=== PATIENT | male | born 1970 | race Caucasian/White ===

== ENCOUNTER 2017-04-25 08:04 | Emergency (ER) | payer OTHER ==
[~2017-04-25] VITALS: Ht 175.3 cm; Wt 118.9 kg
[~2017-04-25 08:04] MED LIST: ASPI81TA21 PO; LSN40 PO; PANT40TA2 PO
[2017-04-25 08:10] VITALS: TEMP 36.7; Ht 175.3 cm; Wt 118.9 kg
[2017-04-25] MEDS ORDERED: ONDANSETRON INJ 2 MG/ML 2 ML VIAL IV STA (08:25)
[2017-04-25] MEDS ORDERED: SODIUM CHLORIDE 0.9% 1000ML 1,000 ML IV STA (08:25)
[2017-04-25] MEDS ORDERED: HYDROmorphone INJ 1 MG/ML SYR IV STA (08:25)
--- NOTE | 2017-04-25 08:28 | EMERGENCY ROOM VISIT NOTE ---
History Report prepared by Geo: Diego Adorno Under the Supervision of: Dr. Justin Wall M.D. First contact with patient: 08:16 Chief Complaint: PAIN (GENERALIZED) Stated Complaint: GOUT History of Present Illness The patient is a 46 year old male with a history of gout who presents to the Emergency Room with complaints of persistent right ankle pain that started yesterday morning. He says that the pain came on suddenly when he woke up yesterday morning, and did not think it was gout initially, but the pain continued and now he thinks it is gout. The patient states that the right ankle is swollen. He says that he took Coltrazine last night, which decreased the pain somewhat. The patient denies any known injury to the ankle. He says that he was on Allopurinol years ago, but is not on it anymore. Source of History: patient Onset: Yesterday morning Position: ankle (right) Symptom Intensity: lots of pain Quality: other (sudden onset) Timing: other (persistent) Note: Associated symptoms: Right ankle swelling. Denies injury. Review of Systems See HPI for pertinent positives & negatives. A total of 10 systems reviewed and were otherwise negative. Past Medical & Surgical Medical Problems: (1) Abdominal pain (2) Diverticulitis (3) Hypertension Family History Hypertension Social History Smoking Status: Never Smoker Drug Use: none Marital Status: Housing Status: lives with family Occupation Status: employed Current/Historical Medications Scheduled Aspirin Enteric Coated (Ecotrin Or Generic), 81 MG PO DAILY Indomethacin (Indocin), 50 MG PO TID Lisinopril (Lisinopril), 40 MG PO DAILY Ranitidine Hcl (Zantac), 75 MG PO DAILY Allergies Coded Allergies: Peanut (Verified Allergy, Severe, ANAPHYLAXIS, 04/25/17) [place] (Verified Allergy, Unknown, ANAPHYLAXIS, 04/25/17) Filberts (Verified Allergy, Unknown, ANAPHYLAXIS, 04/25/17) NO KNOWN DRUG ALLERGIES (Verified Allergy, Unknown, , 04/25/17) Physical Exam Vital Signs Date Time Temp Pulse Resp B/P (MAP) Pulse Ox O2 Delivery O2 Flow Rate FiO2 04/25/17 08:56 80 04/25/17 08:10 36.7 87 20 148/96 97 Room Air Physical Exam GENERAL: Patient is a healthy-appearing well-nourished 46 year old male. HEAD: Normocephalic atraumatic EYES: Ocular movements intact pupils equal and react to light OROPHARYNX mucous membranes are moist no exudates present no erythema or edema present NECK: Supple no nuchal rigidity CHEST: Good equal expansion LUNGS: Clear and equal to auscultation CARDIAC: Normal S1 and S2 ABDOMEN: Soft nontender no guarding BACK: No CVA tenderness EXTREMITIES: Exquisitely tender when moving right ankle. NEURO: Patient is following commands and answering questions appropriately. Alert and oriented x3 Cranial Nerves 2-12 grossly intact Medical Decision & Procedures ER Provider Diagnostic Interpretation: X-ray results as stated below per interpretation by me and the radiologist: RIGHT ANKLE 3 VIEWS HISTORY: Pt c/o Rt ankle pain COMPARISON: None. FINDINGS: There is no fracture or dislocation. Mild soft tissue swelling. No radiopaque foreign bodies. Calcification at the distal attachment of the Achilles. This likely chronic. IMPRESSION: No fractures. Electronically signed by: Khanh Sandoval M.D. 04/25/2017 8:48 AM Dictated Date/Time: 04/25/2017 8:47 AM Laboratory Results 04/25/17 08:40 Red Blood Count 4.79, Mean Corpuscular Volume 92.7, Mean Corpuscular Hemoglobin 32.4, Mean Corpuscular Hemoglobin Concent 34.9, Mean Platelet Volume 10.0, Neutrophils (%) (Auto) 67.2, Lymphocytes (%) (Auto) 21.3, Monocytes (%) (Auto) 8.1, Eosinophils (%) (Auto) 2.9, Basophils (%) (Auto) 0.3, Neutrophils # (Auto) 7.02, Lymphocytes # (Auto) 2.22, Monocytes # (Auto) 0.85, Eosinophils # (Auto) 0.30, Basophils # (Auto) 0.03 04/25/17 08:40 Test 04/25/17 08:40 04/25/17 08:55 White Blood Count 10.44 K/uL (4.8-10.8) Red Blood Count 4.79 M/uL (4.7-6.1) Hemoglobin 15.5 g/dL (14.0-18.0) Hematocrit 44.4 % (42-52) Mean Corpuscular Volume 92.7 fL (80-100) Mean Corpuscular Hemoglobin 32.4 pg (25-34) Mean Corpuscular Hemoglobin Concent 34.9 g/dl (32-36) Platelet Count 199 K/uL (130-400) Mean Platelet Volume 10.0 fL (7.4-10.4) Neutrophils (%) (Auto) 67.2 % Lymphocytes (%) (Auto) 21.3 % Monocytes (%) (Auto) 8.1 % Eosinophils (%) (Auto) 2.9 % Basophils (%) (Auto) 0.3 % Neutrophils # (Auto) 7.02 K/uL (1.4-6.5) Lymphocytes # (Auto) 2.22 K/uL (1.2-3.4) Monocytes # (Auto) 0.85 K/uL (0.11-0.59) Eosinophils # (Auto) 0.30 K/uL (0-0.5) Basophils # (Auto) 0.03 K/uL (0-0.2) RDW Standard Deviation 42.2 fL (36.4-46.3) RDW Coefficient of Variation 12.6 % (11.5-14.5) Immature Granulocyte % (Auto) 0.2 % Immature Granulocyte # (Auto) 0.02 K/uL (0.00-0.02) Anion Gap 10.0 mmol/L (3-11) Est Creatinine Clear Calc Drug Dose 112.9 ml/min Estimated GFR () 99.8 Estimated GFR (Non- 86.1 BUN/Creatinine Ratio 15.0 (10-20) Uric Acid 6.3 mg/dl (2.6-7.2) Calcium Level 8.9 mg/dl (8.5-10.1) Total Bilirubin 0.5 mg/dl (0.2-1) Direct Bilirubin 0.1 mg/dl (0-0.2) Aspartate Amino Transf (AST/SGOT) 22 U/L (15-37) Alanine Aminotransferase (ALT/SGPT) 34 U/L (12-78) Alkaline Phosphatase 53 U/L (45-117) Total Protein 8.1 gm/dl (6.4-8.2) Albumin 3.8 gm/dl (3.4-5.0) Lipase 167 U/L (73-393) Urine Color YELLOW Urine Appearance CLEAR (CLEAR) Urine pH 5.0 (4.5-7.5) Urine Specific [place] 1.018 (1.000-1.030) Urine Protein NEG (NEG) Urine Glucose (UA) NEG (NEG) Urine Ketones NEG (NEG) Urine Occult Blood NEG (NEG) Urine Nitrite NEG (NEG) Urine Bilirubin NEG (NEG) Urine Urobilinogen NEG (NEG) Urine Leukocyte Esterase NEG (NEG) Medications Administered Medications (Trade) Dose Ordered Sig/[place] Route Start Time Stop Time Status Last Admin Dose Admin Sodium Chloride 1,000 ml @ 999 mls/hr Q1H1M STAT IV 04/25/17 08:25 04/25/17 09:25 DC 04/25/17 08:47 999 MLS/HR Hydromorphone HCl (Dilaudid Inj) 1 mg NOW STAT IV 04/25/17 08:25 04/25/17 08:27 DC 04/25/17 08:47 1 MG Ondansetron HCl (Zofran Inj) 4 mg NOW STAT IV 04/25/17 08:25 04/25/17 08:27 DC 04/25/17 08:47 4 MG Ketorolac Tromethamine (Toradol Inj) 30 mg NOW STAT IV 04/25/17 08:33 04/25/17 08:50 DC 04/25/17 08:46 30 MG ED Course 0819: Past medical records reviewed. The patient was evaluated in room B10. A complete history and physical examination was performed. 0825: Ordered Zofran Inj 4 mg IV, Dilaudid Inj 1 mg IV, NSS 1000 ml @ 999 mls/ hr IV. 0833: Ordered Toradol Inj 30 mg IV. 0930: Upon reexamination the patient is resting and feeling better. I discussed results and treatment plan with the patient. He verbalizes agreement and understanding. The patient is ready for discharge. Medical Decision Differential diagnosis: Etiologies such as fracture, dislocation, neurovascular compromise, compartment syndrome, soft tissue injury, as well as others were entertained. This is a 46-year-old male who presents emergency department complaining of right ankle pain. The patient has a history of gout and he feels this is a gout flare. He took his colchicine 3 doses last evening. An IV was established , the patient given normal saline bolus, Dilaudid. Repeat examination revealed much improvement the patient's symptoms. Discussing the case with the pharmacy they felt that the patient be placed on indomethacin. Patient and are in agreement with the treatment plan. Medication Reconcilliation Current Medication List: was personally reviewed by me Blood Pressure Screening Patient's blood pressure: Elevated blood pressure Blood pressure disposition: Elevated BP felt to be situational Impression Primary Impression: Gout Scribe Attestation The scribe's documentation has been prepared under my direction and personally reviewed by me in its entirety. I confirm that the note above accurately reflects all work, treatment, procedures, and medical decision making performed by me. Departure Information Dispostion Home / Self-Care Prescriptions Indomethacin (Indocin) 50 Mg Cap 50 MG PO TID, #20 CAP WITH FOOD UNTIL PAIN RESOLVES Prov: Justin Wall MD 04/25/17 Referrals No Doctor, Assigned (PCP) Patient Instructions ED Diet Gout, Gout Attack Tx, My [facility] Additional Instructions You have been examined and treated today on an emergency basis only. This is not a substitute for, or an effort to provide, complete comprehensive medical care. It is impossible to recognize and treat all injuries or illnesses in a single emergency department visit. It is therefore important that you follow up closely with [facility]. Call as soon as possible for an appointment. Thank you for your time and consideration. I look forward to speaking with you again soon. Please don't hesitate to call us if you have any questions. Problem Qualifiers Primary Impression: Gout Gout site: ankle Gout etiology: unspecified cause Chronicity: acute Laterality: right Qualified Codes: M10.9 - Gout, unspecified
[2017-04-25] MEDS ORDERED: KETOROLAC TROMETHAMINE 30 MG/ML VIAL IV STA (08:33)
[2017-04-25 08:48] LABS: BASO % 0.3 %; BASO ABS # 0.03 K/uL (0-0.2); COMPLETE YES; EOS % 2.9 %; HEMATOCRIT 44.4 % (42-52); IG% 0.2 %; LYMPH % 21.3 %; LYMPH ABS # 2.22 K/uL (1.2-3.4); MEAN CELL VOLUME 92.7 fL (80-100); MEAN CORPUSCULAR HEMOGLOBIN 32.4 pg (25-34); MEAN CORPUSCULAR HGB CONC 34.9 g/dl (32-36); MONO % 8.1 %; NEUT % 67.2 %; PLATELET COUNT 199 K/uL (130-400); RED BLOOD COUNT 4.79 M/uL (4.7-6.1); WHITE BLOOD COUNT 10.44 K/uL (4.8-10.8)
--- NOTE | 2017-04-25 08:49 | DIAGNOSTIC IMAGING REPORT ---
RIGHT ANKLE 3 VIEWS HISTORY: Pt c/o Rt ankle pain COMPARISON: None. FINDINGS: There is no fracture or dislocation. Mild soft tissue swelling. No radiopaque foreign bodies. Calcification at the distal attachment of the Achilles. This likely chronic. IMPRESSION: No fractures. Electronically signed by: Khanh Sandoval M.D. 04/25/2017 8:48 AM Dictated Date/Time: 04/25/2017 8:47 AM
[2017-04-25] MEDS ORDERED: RANITAB33 PO (09:03)
[2017-04-25 09:11] LABS: CALCIUM 8.9 mg/dl (8.5-10.1); CREATININE 1.03 mg/dl (0.60-1.40); POTASSIUM 3.9 mmol/L (3.5-5.1); URIC ACID 6.3 mg/dl (2.6-7.2)
[2017-04-25 09:20] LABS: URINE APPEARANCE CLEAR (CLEAR); URINE BILIRUBIN NEG (NEG); URINE COLOR YELLOW; URINE NITRITE NEG (NEG); URINE SPECIFIC GRAVITY 1.018 (1.000-1.030); UROBILINOGEN NEG (NEG)
[2017-04-25] MEDS ORDERED: INDO-24 PO (09:32)
[2017-04-25 09:38] LABS: MANUAL MICROSCOPIC REQUIRED? NO; REVIEW REQ? NO
[2017-04-25 09:56] VITALS: BP 150/93; PULSE 69; O2SAT 98
== END 2017-04-25 09:58 | disposition home or self-care (01) ==
LOC: C.EDB 08:06
DX: M10.9 Gout, unspecified (principal); I10 Essential (primary) hypertension; Z82.49 Family history of ischemic heart disease and other diseases of the circulatory system; Z79.82 Long term (current) use of aspirin; Z79.899 Other long term (current) drug therapy

== ENCOUNTER → 2017-05-14 | Outpatient (CLI) | payer OTHER ==
[~2017-05-14] MED LIST changes: +INDO-24 PO; -PANT40TA2 PO; +RANITAB33 PO
[2017-05-14 17:09] LABS: BLOOD UREA NITROGEN 17 mg/dl (7-18); BUN/CREATININE RATIO 15.1 (10-20); CALCIUM 9.3 mg/dl (8.5-10.1); CARBON DIOXIDE 24 mmol/L (21-32); CHLORIDE 101 mmol/L (98-107); CREATININE 1.12 mg/dl (0.60-1.40); GLUCOSE 108 mg/dl (70-99); POTASSIUM 3.8 mmol/L (3.5-5.1); SODIUM 133 mmol/L (136-145)
[2017-05-14 17:10] LABS: URIC ACID 5.4 mg/dl (2.6-7.2)
[2017-05-15 06:32] LABS: ESTIMATED AVERAGE GLUCOSE 126 mg/dl; HA1C FLAG Normal (Normal)
== END | disposition home or self-care (01) ==
LOC: C.LABBFT 11:49
PROVIDERS: ATTEND Family Medicine
DX: I10 Essential (primary) hypertension (principal); G47.33 Obstructive sleep apnea (adult) (pediatric); E66.9 Obesity, unspecified; M10.9 Gout, unspecified

== ENCOUNTER → 2017-06-03 | Outpatient (CLI) | payer OTHER ==
[~2017-06-03] VITALS: Ht 175.3 cm; Wt 118.8 kg
[2017-06-03 15:40] VITALS: BP 125/85; PULSE 83; Ht 175.3 cm; Wt 118.8 kg
== END | disposition home or self-care (01) ==
LOC: C.NEUR 15:10
PROVIDERS: ATTEND Physician Assistant
DX: G47.33 Obstructive sleep apnea (adult) (pediatric) (principal); I10 Essential (primary) hypertension; E66.9 Obesity, unspecified; Z68.39 Body mass index [BMI] 39.0-39.9, adult; E78.5 Hyperlipidemia, unspecified

== ENCOUNTER 2024-02-12 20:18 | Inpatient (IN) ==
[2024-02-12] MEDS: SODIUM CHLORIDE 0.9% 1,000 ML IV ONE ×2 (20:59→21:40)
[2024-02-12 21:12] LABS: iSTAT Creatinine 1.1 mg/dl (0.6-1.3); iSTAT Ionized Calcium 1.14 mmol/l (1.12-1.32); iSTAT Potassium 3.9 mmol/L (3.3-5.0)
[2024-02-12] MEDS: METOPROLOL TARTRATE 1 MG/ML VIAL IV STA ×3 (21:16→22:12)
--- NOTE | 2024-02-12 21:16 | Emergency Department Note ---
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 Last Admin: 02/12/24 22:12 Dose: 5 mg Documented By: [facility] Data Radiologist's Impression: Abdomen/Pelvis CT 02/12/24 22:09 Exam(s): CT ABDOMEN + PELVIS With Contrast IV Amt: 118 ML OPTIRAY 320 EXAM: CT Abdomen and Pelvis With Intravenous Contrast CLINICAL HISTORY: Reason for exam: abd pain, constip. TECHNIQUE: Axial computed tomography images of the abdomen and pelvis with intravenous contrast. CTDI is 28.05 mGy and DLP is 2471.19 mGy-cm. Automated exposure control was utilized for the study. A dose lowering technique was utilized adhering to the principles of ALARA. CONTRAST: Patient received 118 ML OPTIRAY 320 of IV contrast COMPARISON: 07/02/14 FINDINGS: Lung bases: See below. Pleural space: Small bibasilar pleural effusions with mild compressive atelectasis dependent lung bases. Pneumonia not definitively excluded. ABDOMEN: Liver: Fatty infiltration of liver. Gallbladder and bile ducts: Unremarkable. No calcified stones. No ductal dilation. Pancreas: Unremarkable. No mass. No ductal dilation. Spleen: Unremarkable. No splenomegaly. Adrenals: Unremarkable. No mass. Kidneys and ureters: Unremarkable. No solid mass. No hydronephrosis. Stomach and bowel: Nondistended, fluid-filled small and large bowel characteristic for watery diarrhea. Subtle inflammatory stranding surrounding the descending duodenum may represent infectious or inflammatory duodenitis. PELVIS: Appendix: No findings to suggest acute appendicitis. Bladder: Unremarkable. No mass. Reproductive: Unremarkable as visualized. ABDOMEN and PELVIS: Intraperitoneal space: Unremarkable. No free air. No significant fluid collection. Bones/joints: No acute fracture. No dislocation. Soft tissues: Unremarkable. Vasculature: Unremarkable. No abdominal aortic aneurysm. Lymph nodes: Unremarkable. No enlarged lymph nodes. IMPRESSION: 1. Nondistended, fluid-filled small and large bowel characteristic for watery diarrhea. 2. Subtle inflammatory stranding surrounding the descending duodenum may represent infectious or inflammatory duodenitis. 3. Small bibasilar pleural effusions with mild compressive atelectasis dependent lung bases. Pneumonia not definitively excluded. Electronically signed by: Calixto Lux MD 02/12/24 23:01 PM Chest CTA 02/12/24 22:09 Exam(s): CTA CHEST IV Amt: 118 ML OPTIRAY 320 EXAM: CT Angiography Chest With Intravenous Contrast CLINICAL HISTORY: Reason for exam: PE. TECHNIQUE: Axial computed tomographic angiography images of the chest with intravenous contrast. CTDI is 28.05 mGy and DLP is 2471.19 mGy-cm. Automated exposure control was utilized for the study. A dose lowering technique was utilized adhering to the principles of ALARA. MIP reconstructed images were created and reviewed. COMPARISON: 07/02/14 FINDINGS: Pulmonary arteries: Unremarkable. No pulmonary embolism is identified. Aorta: No acute findings. No thoracic aortic aneurysm. Lungs: Mild interstitial pulmonary edema and mild congestive bronchial wall thickening. Pleural space: Small, layering bilateral pleural effusions with mild compressive atelectasis or pneumonia in the dependent lung bases. Heart: Heart is mildly enlarged. No significant pericardial effusion. No evidence of RV dysfunction. Bones/joints: No acute fracture. No dislocation. Soft tissues: Unremarkable. Lymph nodes: Unremarkable. No enlarged lymph nodes. IMPRESSION: 1. No pulmonary embolism is identified. 2. Small, layering bilateral pleural effusions with mild compressive atelectasis or pneumonia in the dependent lung bases. 3. Mild interstitial pulmonary edema and mild congestive bronchial wall thickening. Electronically signed by: Calixto Lux MD 02/12/24 23:03 PM Discharge Plan Visit Data Chief Complaint: Shortness of Breath/Dyspnea Stated Complaint: SEVERE ABD PAIN, SOB, NAUSEA ED Provider: Bernardino Herrera Discharge Problem: New onset atrial flutter, Atrial flutter with rapid ventricular response, Bilateral pleural effusion, Pneumonia Discharge Instructions Interventions: ED Discharge Assessment Last Done: 02/13/24 01:21 Discharge Problem: Pneumonia Qualifiers: Pneumonia type: due to unspecified organism Laterality: bilateral Lung location: lower lobe of lung Qualified Code(s): J18.9 - Pneumonia, unspecified organism
[2024-02-12 21:34] LABS: Albumin Globulin Ratio 1.5 (0.9-2); Albumin Level 4.1 gm/dl (3.4-5.0); Bilirubin,Total 0.7 mg/dl (0.2-1.0); Calcium 8.9 mg/dl (8.6-10.3); Creatinine Clr Calc Pharmacy 98.9 ml/min; Est GFR (African American) 98.5 ml/min; Est GFR (Non-African American) 84.9 ml/min; Globulin 2.8 gm/dl (2.5-4.0); Magnesium 2.4 mg/dl (1.7-2.4); Phosphorus 3.5 mg/dl (2.5-4.9); Potassium 3.9 mmol/L (3.5-5.1); Total Protein 6.9 gm/dl (6.0-8.3)
[2024-02-12 21:38] LABS: Basophils # (auto) 0.05 K/uL (0.00-0.20); Basophils % (auto) 0.5 %; Eosinophils # (auto) 0.09 K/uL (0.00-0.50); Eosinophils % (auto) 0.9 %; Hematocrit (blood only) 44.2 % (42.0-52.0); Hemoglobin 14.8 g/dl (14.0-18.0); Immature Granulocytes # (auto) 0.04 K/uL (0.01-0.20); Immature Granulocytes % (auto) 0.4 %; Lymphocytes # (auto) 2.14 K/uL (1.20-3.40); Lymphocytes % (auto) 22.2 %; Mean Corpuscular Hemoglobin 31.5 pg (25.0-34.0); Mean Corpuscular Hgb Conc 33.5 g/dL (32.0-36.0); Mean Platelet Volume 11.2 fL (9.4-12.4); Monocytes # (auto) 0.82 K/uL (0.11-0.59); Monocytes % (auto) 8.5 %; Neutrophils % (auto) 67.5 %; Platelet Count 213 K/uL (130-400); RDW Coefficient of Variation 12.3 % (11.5-14.5); RDW Standard Deviation 42.5 fL (36.4-46.3); White Blood Count 9.64 K/ul (4.8-10.8)
[2024-02-12 21:45] LABS: INR 1.2 (0.9-1.1); Prothrombin Time 12.7 Seconds (9.0-12.0)
[2024-02-12 21:49] LABS: Thyroid Stimulating Hormone 4.027 uIu/ml (0.300-4.500)
[2024-02-12 22:03] LABS: D Dimer 1290 ug/L FEU (0-500)
[2024-02-12 22:24] LABS: Adenovirus PCR Not Detected (NotDetected); Bordetella parapertussis PCR Not Detected (NotDetected); Bordetella pertussis PCR Not Detected (NotDetected); Chlamydia pneumoniae PCR Not Detected (NotDetected); Coronavirus 229E PCR Not Detected (NotDetected); Coronavirus CoV-2 (COVID19)PCR Not Detected (NotDetected); Coronavirus HKU1 PCR Not Detected (NotDetected); Coronavirus NL63 PCR Not Detected (NotDetected); Coronavirus OC43PCR Not Detected (NotDetected); Human Metapneumovirus PCR Not Detected (NotDetected); Influenza A PCR Not Detected (NotDetected); Influenza B PCR Not Detected (NotDetected); Mycoplasma pneumoniae PCR Not Detected (NotDetected); Parainfluenza Virus 1 PCR Not Detected (NotDetected); Parainfluenza Virus 2 PCR Not Detected (NotDetected); Parainfluenza Virus 3 PCR Not Detected (NotDetected); Parainfluenza Virus 4 PCR Not Detected (NotDetected); Respiratory Syncytial VirusPCR Not Detected (NotDetected); Rhinovirus/Enterovirus PCR Not Detected (NotDetected)
[2024-02-12] MEDS: OPTIRAY 320 125ml IV ONE (22:27)
[2024-02-12 23:00] LABS: Appearance Urine Clear (Clear); Bacteria Urine Automated None Seen (None Seen); Bilirubin Urine Negative (Negative); Blood Urine Negative (Negative); Cast Urine Automated 0-2 /lpf (0-2); Color Urine Yellow; Epithelial Cell Urine Auto 0-2 /hpf (0-2); Glucose Urine UA Negative (Negative); Ketones Urine Negative (Negative); Leukocyte Esterase Urine Negative (Negative); Nitrite Urine Negative (Negative); Protein Urine Trace (Negative); RBC Urine Automated 0-2 /hpf (0-2); Specific Gravity Urine 1.026 (1.000-1.030); Urobilinogen Urine Negative (Negative); WBC Urine Automated 0-5 /hpf (0-5); pH Urine 5.5 (4.5-7.5)
--- NOTE | 2024-02-12 23:02 | CT Scan Report ---
Exam(s): CT ABDOMEN + PELVIS With Contrast IV Amt: 118 ML OPTIRAY 320 EXAM: CT Abdomen and Pelvis With Intravenous Contrast CLINICAL HISTORY: Reason for exam: abd pain, constip. TECHNIQUE: Axial computed tomography images of the abdomen and pelvis with intravenous contrast. CTDI is 28.05 mGy and DLP is 2471.19 mGy-cm. Automated exposure control was utilized for the study. A dose lowering technique was utilized adhering to the principles of ALARA. CONTRAST: Patient received 118 ML OPTIRAY 320 of IV contrast COMPARISON: 07/02/14 FINDINGS: Lung bases: See below. Pleural space: Small bibasilar pleural effusions with mild compressive atelectasis dependent lung bases. Pneumonia not definitively excluded. ABDOMEN: Liver: Fatty infiltration of liver. Gallbladder and bile ducts: Unremarkable. No calcified stones. No ductal dilation. Pancreas: Unremarkable. No mass. No ductal dilation. Spleen: Unremarkable. No splenomegaly. Adrenals: Unremarkable. No mass. Kidneys and ureters: Unremarkable. No solid mass. No hydronephrosis. Stomach and bowel: Nondistended, fluid-filled small and large bowel characteristic for watery diarrhea. Subtle inflammatory stranding surrounding the descending duodenum may represent infectious or inflammatory duodenitis. PELVIS: Appendix: No findings to suggest acute appendicitis. Bladder: Unremarkable. No mass. Reproductive: Unremarkable as visualized. ABDOMEN and PELVIS: Intraperitoneal space: Unremarkable. No free air. No significant fluid collection. Bones/joints: No acute fracture. No dislocation. Soft tissues: Unremarkable. Vasculature: Unremarkable. No abdominal aortic aneurysm. Lymph nodes: Unremarkable. No enlarged lymph nodes. IMPRESSION: 1. Nondistended, fluid-filled small and large bowel characteristic for watery diarrhea. 2. Subtle inflammatory stranding surrounding the descending duodenum may represent infectious or inflammatory duodenitis. 3. Small bibasilar pleural effusions with mild compressive atelectasis dependent lung bases. Pneumonia not definitively excluded. Electronically signed by: Calixto Lux MD 02/12/24 23:01 PM
--- NOTE | 2024-02-12 23:04 | CT Scan Report ---
Exam(s): CTA CHEST IV Amt: 118 ML OPTIRAY 320 EXAM: CT Angiography Chest With Intravenous Contrast CLINICAL HISTORY: Reason for exam: PE. TECHNIQUE: Axial computed tomographic angiography images of the chest with intravenous contrast. CTDI is 28.05 mGy and DLP is 2471.19 mGy-cm. Automated exposure control was utilized for the study. A dose lowering technique was utilized adhering to the principles of ALARA. MIP reconstructed images were created and reviewed. COMPARISON: 07/02/14 FINDINGS: Pulmonary arteries: Unremarkable. No pulmonary embolism is identified. Aorta: No acute findings. No thoracic aortic aneurysm. Lungs: Mild interstitial pulmonary edema and mild congestive bronchial wall thickening. Pleural space: Small, layering bilateral pleural effusions with mild compressive atelectasis or pneumonia in the dependent lung bases. Heart: Heart is mildly enlarged. No significant pericardial effusion. No evidence of RV dysfunction. Bones/joints: No acute fracture. No dislocation. Soft tissues: Unremarkable. Lymph nodes: Unremarkable. No enlarged lymph nodes. IMPRESSION: 1. No pulmonary embolism is identified. 2. Small, layering bilateral pleural effusions with mild compressive atelectasis or pneumonia in the dependent lung bases. 3. Mild interstitial pulmonary edema and mild congestive bronchial wall thickening. Electronically signed by: Calixto Lux MD 02/12/24 23:03 PM
[2024-02-12] MEDS: cefTRIAXone SODIUM 2,000 MG/50 ML BAG IV STA (23:47)
[2024-02-13] MEDS: DOXYCYCLINE HYCLATE 100 MG in DEXTROSE 5% MINI-B 100 ML IV STA (00:09)
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
[2024-02-13] MEDS: dilTIAZem HCl 5 MG/ML 5 ML VIAL IV STA ×2 (00:35→01:31)
[2024-02-13] MEDS: HEPARIN SODIUM/DEXTROSE 25,000 UNITS/500 ML BAG IV SCH (00:55)
[2024-02-13] MEDS ORDERED: NON-FORMULARY MEDICATION (Aspirin 81 mg tablet) PO SCH (01:21)
[2024-02-13] MEDS ORDERED: ACETAMINOPHEN 325 MG TAB PO PRN (01:21)
[2024-02-13] MEDS: Heparin IV Adult Wt-Based Standard *NO* INITIAL Bolus Protocol IV STA (01:32)
[2024-02-13] MEDS: dilTIAZem HCL 30 MG TAB PO ONE ×3 (01:35→11:35)
[2024-02-13] MEDS: ONDANSETRON INJ 2 MG/ML 2 ML VIAL IV PRN (02:39)
[2024-02-13] MEDS: METOPROLOL TARTRATE 1 MG/ML VIAL IV STA ×2 (07:52→09:29)
[2024-02-13 08:19] LABS: Basophils # (auto) 0.06 K/uL (0.00-0.20); Basophils % (auto) 0.6 %; Eosinophils # (auto) 0.02 K/uL (0.00-0.50); Eosinophils % (auto) 0.2 %; Hematocrit (blood only) 42.6 % (42.0-52.0); Hemoglobin 14.1 g/dl (14.0-18.0); Immature Granulocytes # (auto) 0.04 K/uL (0.01-0.20); Immature Granulocytes % (auto) 0.4 %; Lymphocytes % (auto) 13.7 %; Mean Corpuscular Hemoglobin 31.9 pg (25.0-34.0); Mean Corpuscular Hgb Conc 33.1 g/dL (32.0-36.0); Mean Corpuscular Volume 96.4 fL (80.0-100.0); Mean Platelet Volume 10.7 fL (9.4-12.4); Monocytes # (auto) 0.75 K/uL (0.11-0.59); Monocytes % (auto) 7.9 %; Neutrophils % (auto) 77.2 %; Platelet Count 202 K/uL (130-400); RDW Coefficient of Variation 12.5 % (11.5-14.5); RDW Standard Deviation 43.9 fL (36.4-46.3); Red Blood Count 4.42 M/uL (4.70-6.10); White Blood Count 9.47 K/ul (4.8-10.8)
--- NOTE | 2024-02-13 08:21 | XRay Report ---
XR chest 1V portable CLINICAL HISTORY: tachycardia TECHNIQUE: Single frontal radiograph of the chest was obtained. Comparison: Comparison is made to chest radiograph 01/23/2012 FINDINGS: No lines and tubes are seen. Cardiomegaly is noted. The lungs are clear. No evidence of pleural effus ion or pneumothorax. IMPRESSION: No acute chest disease. Cardiomegaly is noted. ACT 112: Negative or not required by law. Electronically signed by: Fermín Dunn M.D. 02/13/2024 8:19 AM
[2024-02-13 08:37] LABS: Albumin Globulin Ratio 1.5 (0.9-2); Albumin Level 3.8 gm/dl (3.4-5.0); BUN Creatinine Ratio 17.5 (10-20); Bilirubin,Total 0.7 mg/dl (0.2-1.0); Calcium 8.3 mg/dl (8.6-10.3); Est GFR (African American) 102.2 ml/min; Est GFR (Non-African American) 88.1 ml/min; Globulin 2.6 gm/dl (2.5-4.0); Potassium 4.8 mmol/L (3.5-5.1); Total Protein 6.4 gm/dl (6.0-8.3)
[2024-02-13 08:38] LABS: ANTI-Xa, UFH(UnfractionatedHep 0.34 IU/ml (0.3-0.7)
[2024-02-13] MEDS: allopurinoL 100 MG TAB PO SCH (08:45)
[2024-02-13] MEDS: PANTOprazole 40 MG TAB PO SCH (08:45)
[2024-02-13] MEDS: ASPIRIN 81 MG ECTAB PO SCH (08:45)
[2024-02-13] MEDS: CHOLECALCIFEROL 125 MCG (5,000 UNITS) TAB PO SCH (08:45)
[2024-02-13 09:02] LABS: INR 1.2 (0.9-1.1); Prothrombin Time 12.8 Seconds (9.0-12.0)
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
--- NOTE | 2024-02-13 11:12 | XCELERA ---
[id number] \\[id number]\[id number]
[2024-02-13] MEDS: dilTIAZem HCL 240 MG CAPCR PO SCH (11:35)
[2024-02-13] MEDS ORDERED: dilTIAZem HCL 30 MG TAB PO SCH (14:00)
[2024-02-13 15:59] LABS: ANTI-Xa, UFH(UnfractionatedHep 0.25 IU/ml (0.3-0.7)
[2024-02-13] MEDS: METOPROLOL TARTRATE 50 MG TAB PO SCH (21:40)
[2024-02-13 23:37] LABS: ANTI-Xa, UFH(UnfractionatedHep 0.35 IU/ml (0.3-0.7)
[2024-02-14 06:01] LABS: Basophils # (auto) 0.06 K/uL (0.00-0.20); Basophils % (auto) 0.6 %; Eosinophils # (auto) 0.09 K/uL (0.00-0.50); Eosinophils % (auto) 0.9 %; Hematocrit (blood only) 40.3 % (42.0-52.0); Hemoglobin 13.5 g/dl (14.0-18.0); Immature Granulocytes # (auto) 0.05 K/uL (0.01-0.20); Immature Granulocytes % (auto) 0.5 %; Lymphocytes # (auto) 1.75 K/uL (1.20-3.40); Lymphocytes % (auto) 17.8 %; Mean Corpuscular Hemoglobin 32.1 pg (25.0-34.0); Mean Corpuscular Hgb Conc 33.5 g/dL (32.0-36.0); Mean Corpuscular Volume 95.7 fL (80.0-100.0); Mean Platelet Volume 10.9 fL (9.4-12.4); Monocytes # (auto) 0.85 K/uL (0.11-0.59); Monocytes % (auto) 8.6 %; Neutrophils # (auto) 7.04 K/uL (1.40-6.50); Neutrophils % (auto) 71.6 %; Platelet Count 201 K/uL (130-400); RDW Coefficient of Variation 12.8 % (11.5-14.5); RDW Standard Deviation 43.7 fL (36.4-46.3); Red Blood Count 4.21 M/uL (4.70-6.10); White Blood Count 9.84 K/ul (4.8-10.8)
[2024-02-14 06:09] LABS: Albumin Globulin Ratio 1.5 (0.9-2); Albumin Level 3.7 gm/dl (3.4-5.0); BUN Creatinine Ratio 15.3 (10-20); Bilirubin,Total 0.7 mg/dl (0.2-1.0); Calcium 8.4 mg/dl (8.6-10.3); Creatinine Clr Calc Pharmacy 89.1 ml/min; Est GFR (African American) 86.8 ml/min; Est GFR (Non-African American) 74.9 ml/min; Globulin 2.5 gm/dl (2.5-4.0); Magnesium 2.1 mg/dl (1.7-2.4); Potassium 4.1 mmol/L (3.5-5.1); Total Protein 6.2 gm/dl (6.0-8.3)
[2024-02-14 06:23] LABS: ANTI-Xa, UFH(UnfractionatedHep 0.46 IU/ml (0.3-0.7); INR 1.2 (0.9-1.1); Partial Thromboplastin Time 53 Seconds (21-31); Prothrombin Time 12.7 Seconds (9.0-12.0)
[2024-02-14] MEDS: FUROSEMIDE 40 MG/4 ML VIAL IV SCH (09:07)
--- NOTE | 2024-02-14 13:17 | Cardiology Progress Note ---
Date of Service February 14, 2024 Assessment & Plan (1) Atrial fibrillation with RVR: (2) Bilateral pleural effusion: (3) Cardiomyopathy: Plan 1. Atrial fibrillation: He has developed atrial fibrillation with a rapid heart rate, it has not responded well to standard therapy and he remains fast. We will need to achieve better rate control, if we cannot we may need to consider YESIKA guided cardioversion since we do not know the onset of the arrhythmia. I am going to go up on his beta-blockade today and he is on reasonable doses of diltiazem although we could go up on that as well. We need to continue anticoagulation although his [id number] score is low so he may not need that for the long run even if he has recurrent atrial fibrillation. His risk factors for atrial fibrillation include hypertension and sleep apnea. Over the long run we need to try to control both of these. 2. Pleural effusions: This suggests some element of congestive heart failure, an echo is pending to determine his left ventricular function. This would be consistent with either HFpEF or HFrEF, he does have a low ejection fraction which would favor HFrEF. In either case rate control and mild diuresis would be in order. 3. Cardiomyopathy: He has a significant cardiomyopathy which may partially explain his presenting symptoms of shortness of breath. We cannot be certain whether his cardiomyopathy is secondary to longstanding atrial fibrillation (which may have only recently become symptomatic due to the development of the cardiomyopathy) or whether his cardiomyopathy led to the atrial fibrillation. Usually we cannot make that distinction except in retrospect if we see that his left ventricular function improves with rate control. I would recommend rate control and we need to order studies for causes for cardiomyopathy. We will probably need some type of ischemic evaluation although that seems unlikely, I would prefer not to perform catheterization now and I do not think we should do a stress test at this point. We may want to do that in the future. Admission and Anticipated Discharge Date Admission Date: February 13, 2024 Subjective He continues to feel well today, he is not really aware of his cardiac rhythm and has no chest discomfort. He has not been short of breath but has not been very active. Physical Exam Physical Exam: Constitutional: Alert, cooperative and in no distress. HEENT: Unremarkable Neck: No jugular venous distention, carotid pulses are irregular but otherwise normal and equal bilaterally without bruits. Pulmonary: Clear to auscultation bilaterally. Cardiac: Irregular rapid rhythm with no murmur, gallop or rub. Abdomen: Soft, nontender with normal bowel sounds. Extremities: No edema. Neurologic: No focal findings. Skin: No rash, ecchymoses or petechiae. Results & Data Vital Signs (Past 12 Hours) Vital Signs Temp Pulse Pulse Resp BP Pulse Ox O2 Del Method 02/14/24 11:08 36.5 C 112 H 18 116/83 93 Room Air 02/14/24 09:59 Room Air 02/14/24 07:30 116 H 02/14/24 07:24 36.4 C L 112 H 18 115/82 94 Room Air 02/14/24 02:38 36.6 C 119 H 18 122/74 93 Room Air Laboratory Results Cardiac Enzymes 02/14/24 Range/Units 05:29 AST 26 (13-39) U/L Coagulation 02/14/24 Range/Units 05:29 PT 12.7 H (9.0-12.0) Seconds APTT 53 H (21-31) Seconds CBC 02/14/24 Range/Units 05:29 WBC 9.84 (4.8-10.8) K/ul RBC 4.21 L (4.70-6.10) M/uL Hgb 13.5 L (14.0-18.0) g/dl Hct 40.3 L (42.0-52.0) % Plt Count 201 (130-400) K/uL Neut # (Auto) 7.04 H (1.40-6.50) K/uL Lymph # (Auto) 1.75 (1.20-3.40) K/uL [place] # (Auto) 0.85 H (0.11-0.59) K/uL Eos # (Auto) 0.09 (0.00-0.50) K/uL Baso # (Auto) 0.06 (0.00-0.20) K/uL Comprehensive Metabolic Panel 02/14/24 Range/Units 05:29 Sodium 135 L (136-145) mmol/L Potassium 4.1 (3.5-5.1) mmol/L Chloride 103 (98-107) mmol/L Carbon Dioxide 27 (21-32) mmol/L BUN 17 (6-23) mg/dl Creatinine 1.11 (0.6-1.4) mg/dl Glucose 147 H (70-99(Fasting)) mg/dl Calcium 8.4 L (8.6-10.3) mg/dl AST 26 (13-39) U/L ALT 46 (7-52) U/L Alkaline Phosphatase 49 (34-104) U/L Total Protein 6.2 (6.0-8.3) gm/dl Albumin 3.7 (3.4-5.0) gm/dl Intake and Output 02/13/24 02/14/24 02/14/24 22:59 06:59 14:59 Intake Total 923.334 / 1420.934 497.6 / 1420.934 69.066 / 69.066 Balance 923.334 / 1420.934 497.6 / 1420.934 69.066 / 69.066 Intake: IV 673.334 / 930.934 257.6 / 930.934 69.066 / 69.066 Heparin Sodium/Dextrose 25,000 673.334 / 930.934 257.6 / 930.934 69.066 / 69.066 units In 500 ml @ 1,600 UNITS/ HR 32 mls/hr IV .[id number] KEVEN Rx #:[id number] Oral 250 / 490 240 / 490 Other: Other Intake Source NPO # Unmeasured Voids 1 Weight 105.1 kg Weight Measurement Method Standing Scale Diagnostic Findings Telemetry: Atrial fibrillation, rate averaging around 120 bpm. Little change from admission. PG Care Time/CCT Total # of Minutes Spent Total Time Spent with Patient: Total time spent is greater than 50% in coordination of care (as documented) at patient's floor/unit and/or counseling patient: Coding Level of Care Code 54839 SUB INP/OBS CARE 3/50MIN Diagnoses Atrial fibrillation with RVR I48.91 Bilateral pleural effusion J90 Cardiomyopathy I42.9
--- NOTE | 2024-02-14 14:04 | Hospitalist Progress Note ---
Date of Service February 14, 2024 Assessment & Plan (1) Atrial fibrillation with RVR: Plan: New onset Afib with RVR Initially on Diltiazem drip, now transitioned to oral 240mg daily Continue heparin by weight and Metoprolol Cardiology on board, may benefit from cardioversion (2) Acute HFrEF (heart failure with reduced ejection fraction): Plan: ECHO showed EF 30-35% Likely cardiomyopathy from Afib Will continue IV lasix 40mg daily Monitor I/O, daily weights (3) Cardiomyopathy: Plan: Secondary to Afib (4) Bilateral pleural effusion: Plan: secondary to CHF Continue diuresis Plan continue hospitalization Admission and Anticipated Discharge Date Admission Date: February 13, 2024 Subjective patient seen and examined, still feeling some palpitations Review of Systems Review of Systems: All systems reviewed are negative, apart from the ones contained in the history. Physical Exam Physical Exam: The patient is awake, alert and oriented 3, well developed and well nourished, normocephalic and atraumatic, lying in bed and in no acute distress. HEENT--PERRL, EOMI, mucous membranes and oropharynx mildly dry Neck--supple. No JVD. No bruits. Thyroid normal, trachea midline, no adenopathy. Heart--normal S1 and S2. No murmurs, rubs or gallops. Lungs--clear bilaterally, no respiratory distress, no accessory muscle use. Abdomen--normal bowel sounds and soft. Extremities--no cyanosis or clubbing. No edema. Dermatologic--normal skin turgor, normal color, no abnormal lymph nodes, no rash. Neurologic--cranial nerves II through XII grossly intact. Rheumatologic--normal range of motion. Psychiatric--normal affect. Results & Data Results & Data Vital Signs (Past 12 Hours) Vital Signs Temp Pulse Pulse Resp BP Pulse Ox O2 Del Method 02/14/24 11:08 97.7 F 112 H 18 116/83 93 Room Air 02/14/24 09:59 Room Air 02/14/24 07:30 116 H 02/14/24 07:24 97.5 F L 112 H 18 115/82 94 Room Air 02/14/24 02:38 97.9 F 119 H 18 122/74 93 Room Air PG Care Time/CCT Total # of Minutes Spent Total Time Spent with Patient: Total time spent is greater than 50% in coordination of care (as documented) at patient's floor/unit and/or counseling patient: Coding Level of Care Code 11561 SUB INP/OBS CARE 2MIN Diagnoses Atrial fibrillation with RVR I48.91 Acute HFrEF (heart failure with reduced ejection fraction) I50.21 Cardiomyopathy I42.9 Bilateral pleural effusion J90 Time Spent (min) 35
[2024-02-14] MEDS: METOPROLOL TARTRATE 50 MG TAB PO STA (14:10)
[2024-02-14] MEDS: METOPROLOL TARTRATE 100 MG TAB PO SCH (20:19)
--- NOTE | 2024-02-15 05:52 | Electrocardiogram Report ---
Test Reason : Blood Pressure : */* mmHG Vent. Rate : 161 BPM Atrial Rate : * BPM P-R Int : * ms QRS Dur : 72 ms QT Int : 286 ms P-R-T Axes : * -4 -18 degrees QTcB Int : 468 ms Atrial fibrillation with rapid ventricular response Nonspecific T wave abnormality Abnormal ECG When compared with ECG of 12-Feb-2024 20:47, (unconfirmed) Atrial fibrillation is now present Confirmed by Tristan Navarro ([id number]) on 02/15/2024 5:51:32 AM Referred By: REFERRED SELF Confirmed By: Tristan Navarro
--- NOTE | 2024-02-15 05:52 | Electrocardiogram Report ---
Test Reason : Blood Pressure : */* mmHG Vent. Rate : 140 BPM Atrial Rate : * BPM P-R Int : * ms QRS Dur : 72 ms QT Int : 322 ms P-R-T Axes : * 0 -2 degrees QTcB Int : 491 ms Atrial fibrillation with rapid ventricular response Nonspecific T wave abnormality Abnormal ECG When compared with ECG of 12-Feb-2024 20:47, (unconfirmed) No significant change was found Confirmed by Tristan Navarro ([id number]) on 02/15/2024 5:52:04 AM Referred By: REFERRED SELF Confirmed By: Tristan Navarro
--- NOTE | 2024-02-15 05:54 | Electrocardiogram Report ---
Test Reason : Blood Pressure : */* mmHG Vent. Rate : 138 BPM Atrial Rate : * BPM P-R Int : * ms QRS Dur : 76 ms QT Int : 260 ms P-R-T Axes : * -13 -16 degrees QTcB Int : 393 ms Atrial fibrillation with rapid ventricular response Cannot rule out Inferior infarct , age undetermined Abnormal ECG When compared with ECG of 12-Feb-2024 21:31, (unconfirmed) No significant change was found Confirmed by Tristan Navarro ([id number]) on 02/15/2024 5:54:33 AM Referred By: REFERRED SELF Confirmed By: Tristan Navarro
[2024-02-15 06:23] LABS: Basophils # (auto) 0.05 K/uL (0.00-0.20); Basophils % (auto) 0.6 %; Eosinophils # (auto) 0.15 K/uL (0.00-0.50); Eosinophils % (auto) 1.8 %; Hematocrit (blood only) 44.3 % (42.0-52.0); Hemoglobin 14.4 g/dl (14.0-18.0); Immature Granulocytes # (auto) 0.04 K/uL (0.01-0.20); Immature Granulocytes % (auto) 0.5 %; Lymphocytes % (auto) 21.6 %; Mean Corpuscular Hemoglobin 31.2 pg (25.0-34.0); Mean Corpuscular Hgb Conc 32.5 g/dL (32.0-36.0); Mean Corpuscular Volume 95.9 fL (80.0-100.0); Mean Platelet Volume 11.1 fL (9.4-12.4); Monocytes # (auto) 0.85 K/uL (0.11-0.59); Monocytes % (auto) 10.2 %; Neutrophils # (auto) 5.46 K/uL (1.40-6.50); Neutrophils % (auto) 65.3 %; Platelet Count 217 K/uL (130-400); RDW Coefficient of Variation 12.9 % (11.5-14.5); RDW Standard Deviation 44.5 fL (36.4-46.3); Red Blood Count 4.62 M/uL (4.70-6.10); White Blood Count 8.35 K/ul (4.8-10.8)
[2024-02-15 06:35] LABS: Albumin Globulin Ratio 1.5 (0.9-2); Albumin Level 4.1 gm/dl (3.4-5.0); BUN Creatinine Ratio 17.1 (10-20); Bilirubin,Total 0.7 mg/dl (0.2-1.0); Calcium 8.9 mg/dl (8.6-10.3); Creatinine Clr Calc Pharmacy 95.8 ml/min; Est GFR (African American) 92.8 ml/min; Est GFR (Non-African American) 80.1 ml/min; Globulin 2.8 gm/dl (2.5-4.0); Magnesium 2.1 mg/dl (1.7-2.4); Potassium 3.9 mmol/L (3.5-5.1); Total Protein 6.9 gm/dl (6.0-8.3)
[2024-02-15 06:43] LABS: ANTI-Xa, UFH(UnfractionatedHep 0.49 IU/ml (0.3-0.7)
[2024-02-15 06:47] LABS: INR 1.2 (0.9-1.1); Partial Thromboplastin Time 55 Seconds (21-31); Prothrombin Time 12.4 Seconds (9.0-12.0)
--- NOTE | 2024-02-15 06:53 | Electrocardiogram Report ---
Test Reason : Blood Pressure : */* mmHG Vent. Rate : 113 BPM Atrial Rate : 127 BPM P-R Int : * ms QRS Dur : 74 ms QT Int : 288 ms P-R-T Axes : * 15 -11 degrees QTcB Int : 395 ms Atrial fibrillation with rapid ventricular response Nonspecific T wave abnormality Abnormal ECG When compared with ECG of 12-Feb-2024 23:21, (unconfirmed) Minimal criteria for Inferior infarct are no longer Present Confirmed by Tristan Navarro ([id number]) on 02/15/2024 6:52:33 AM Referred By: REFERRED SELF Confirmed By: Tristan Navarro
--- NOTE | 2024-02-15 09:33 | Electrocardiogram Report ---
Test Reason : Blood Pressure : */* mmHG Vent. Rate : 103 BPM Atrial Rate : 115 BPM P-R Int : * ms QRS Dur : 76 ms QT Int : 358 ms P-R-T Axes : * 14 15 degrees QTcB Int : 468 ms Atrial fibrillation with rapid ventricular response Diffuse Minor Nonspecific T wave abnormality Abnormal ECG When compared with ECG of 14-Feb-2024 06:07, HR has decreased by 10 bpm Otherwise no significant change Confirmed by Jose Guadalupe Bhatt ([id number]) on 02/15/2024 9:33:02 AM Referred By: REFERRED SELF Confirmed By: Jose Guadalupe Bhatt
--- NOTE | 2024-02-15 13:45 | Hospitalist Progress Note ---
Date of Service February 15, 2024 Assessment & Plan (1) Atrial fibrillation with RVR: Plan: New onset Afib with RVR Initially on Diltiazem drip, now transitioned to oral 240mg daily Continue heparin by weight and Metoprolol Cardiology on board, may benefit from cardioversion, currently plan is for rate control HR now in the 100's (2) Acute HFrEF (heart failure with reduced ejection fraction): Plan: ECHO showed EF 30-35% Likely cardiomyopathy from Afib Will continue IV lasix 40mg daily Monitor I/O, daily weights (3) Cardiomyopathy: Plan: Secondary to Afib (4) Bilateral pleural effusion: Plan: secondary to CHF Continue diuresis Plan continue hospitalization Admission and Anticipated Discharge Date Admission Date: February 13, 2024 Subjective patient seen and examined, feels overall better Review of Systems Review of Systems: All systems reviewed are negative, apart from the ones contained in the history. Physical Exam Physical Exam: The patient is awake, alert and oriented 3, well developed and well nourished, normocephalic and atraumatic, lying in bed and in no acute distress. HEENT--PERRL, EOMI, mucous membranes and oropharynx mildly dry Neck--supple. No JVD. No bruits. Thyroid normal, trachea midline, no adenopathy. Heart--normal S1 and S2. No murmurs, rubs or gallops. Lungs--clear bilaterally, no respiratory distress, no accessory muscle use. Abdomen--normal bowel sounds and soft. Extremities--no cyanosis or clubbing. No edema. Dermatologic--normal skin turgor, normal color, no abnormal lymph nodes, no rash. Neurologic--cranial nerves II through XII grossly intact. Rheumatologic--normal range of motion. Psychiatric--normal affect. Results & Data Results & Data Vital Signs (Past 12 Hours) Vital Signs Temp Pulse Pulse Resp BP Pulse Ox O2 Del Method 02/15/24 11:23 98.1 F 109 H 18 132/84 93 Room Air 02/15/24 10:49 Room Air 02/15/24 07:32 104 H 02/15/24 07:15 97.9 F 86 18 123/84 94 Room Air 02/15/24 04:12 97.5 F L 89 18 111/76 97 Room Air PG Care Time/CCT Total # of Minutes Spent Total Time Spent with Patient: Total time spent is greater than 50% in coordination of care (as documented) at patient's floor/unit and/or counseling patient: Coding Level of Care Code 93142 SUB INP/OBS CARE 235MIN Diagnoses Atrial fibrillation with RVR I48.91 Acute HFrEF (heart failure with reduced ejection fraction) I50.21 Cardiomyopathy I42.9 Bilateral pleural effusion J90 Time Spent (min) 35
--- NOTE | 2024-02-15 15:59 | Cardiology Progress Note ---
Date of Service February 15, 2024 Assessment & Plan (1) Atrial fibrillation with RVR: (2) Bilateral pleural effusion: (3) Cardiomyopathy: Plan 1. Atrial fibrillation: He has developed atrial fibrillation with a rapid heart rate, it has not responded well to standard therapy and he remains fast but his rate is coming under control. We should try to achieve better rate control, I would like to see his average heart rate under 100. If we cannot we may need to consider YESIKA guided cardioversion since we do not know the onset of the arrhythmia. I am going to go up on his beta-blockade today (150 mg twice daily) and he is on reasonable doses of diltiazem although we could go up on that as well. We need to continue anticoagulation although his [id number] score is low so he may not need that for the long run even if he has recurrent atrial fibrillation. His risk factors for atrial fibrillation include hypertension and sleep apnea. Over the long run we need to try to control both of these. I am going to switch him to Eliquis. 2. Pleural effusions: This suggests some element of congestive heart failure, an echo is pending to determine his left ventricular function. This would be consistent with either HFpEF or HFrEF, he does have a low ejection fraction which would favor HFrEF. In either case rate control and mild diuresis would be in order. 3. Cardiomyopathy: He has a significant cardiomyopathy which may partially explain his presenting symptoms of shortness of breath. We cannot be certain whether his cardiomyopathy is secondary to longstanding atrial fibrillation (which may have only recently become symptomatic due to the development of the cardiomyopathy) or whether his cardiomyopathy led to the atrial fibrillation. Usually we cannot make that distinction except in retrospect if we see that his left ventricular function improves with rate control. I would recommend rate control with a repeat echo in several weeks. So far his studies for reversible causes of cardiomyopathy have come back negative, which is not surprising. We will probably need some type of ischemic evaluation although ischemia seems unlikely, I would prefer not to perform catheterization now and I do not think we should do a stress test at this point. We may want to do that in the future but I can arrange that as an outpatient. Admission and Anticipated Discharge Date Admission Date: February 13, 2024 Subjective He is feeling much better now with better rate control, he has been active in the hallway without shortness of breath. He remains free of palpitations. No lightheadedness or dizziness. Physical Exam Physical Exam: Constitutional: Alert, cooperative and in no distress. HEENT: Unremarkable Neck: No jugular venous distention, carotid pulses are irregular but otherwise normal and equal bilaterally without bruits. Pulmonary: Clear to auscultation bilaterally. Cardiac: Irregular rhythm with no murmur, gallop or rub. Abdomen: Soft, nontender with normal bowel sounds. Extremities: No edema. Neurologic: No focal findings. Skin: No rash, ecchymoses or petechiae. Results & Data Vital Signs (Past 12 Hours) Vital Signs Temp Pulse Pulse Resp BP Pulse Ox O2 Del Method 02/15/24 15:02 36.7 C 102 H 18 113/80 95 Room Air 02/15/24 14:48 99 H 02/15/24 11:23 36.7 C 109 H 18 132/84 93 Room Air 02/15/24 10:49 Room Air 02/15/24 07:32 104 H 02/15/24 07:15 36.6 C 86 18 123/84 94 Room Air 02/15/24 04:12 36.4 C L 89 18 111/76 97 Room Air Laboratory Results Cardiac Enzymes 02/15/24 Range/Units 05:30 AST 22 (13-39) U/L Coagulation 02/15/24 Range/Units 05:30 PT 12.4 H (9.0-12.0) Seconds APTT 55 H (21-31) Seconds CBC 02/15/24 Range/Units 05:30 WBC 8.35 (4.8-10.8) K/ul RBC 4.62 L (4.70-6.10) M/uL Hgb 14.4 (14.0-18.0) g/dl Hct 44.3 (42.0-52.0) % Plt Count 217 (130-400) K/uL Neut # (Auto) 5.46 (1.40-6.50) K/uL Lymph # (Auto) 1.80 (1.20-3.40) K/uL [place] # (Auto) 0.85 H (0.11-0.59) K/uL Eos # (Auto) 0.15 (0.00-0.50) K/uL Baso # (Auto) 0.05 (0.00-0.20) K/uL Comprehensive Metabolic Panel 02/15/24 Range/Units 05:30 Sodium 138 (136-145) mmol/L Potassium 3.9 (3.5-5.1) mmol/L Chloride 101 (98-107) mmol/L Carbon Dioxide 31 (21-32) mmol/L BUN 18 (6-23) mg/dl Creatinine 1.05 (0.6-1.4) mg/dl Glucose 109 H (70-99(Fasting)) mg/dl Calcium 8.9 (8.6-10.3) mg/dl AST 22 (13-39) U/L ALT 41 (7-52) U/L Alkaline Phosphatase 54 (34-104) U/L Total Protein 6.9 (6.0-8.3) gm/dl Albumin 4.1 (3.4-5.0) gm/dl Intake and Output 02/15/24 02/15/24 02/15/24 06:59 14:59 22:59 Intake Total 493.334 / 1943.667 720 / 990.133 270.133 / 990.133 Output Total Balance 493.334 / 1942.667 719 / 989.133 270.133 / 989.133 Intake: IV 373.334 / 758.667 270.133 / 270.133 Heparin Sodium/Dextrose 25,000 373.334 / 758.667 270.133 / 270.133 units In 500 ml @ 1,600 UNITS/ HR 32 mls/hr IV .[id number] [facility] Rx #:[id number] Oral 120 / 1185 720 / 720 Output: # Bowel Movements Other: # Unmeasured Voids 5 Weight 104.4 kg Weight Measurement Method Built in [facility] Diagnostic Findings Telemetry: Atrial fibrillation, heart rate still elevated but better, averaging around 100 or little bit less today. PG Care Time/CCT Total # of Minutes Spent Total Time Spent with Patient: Total time spent is greater than 50% in coordination of care (as documented) at patient's floor/unit and/or counseling patient: Coding Level of Care Code 98522 SUB INP/OBS CARE 2/35MIN Diagnoses Atrial fibrillation with RVR I48.91 Bilateral pleural effusion J90 Cardiomyopathy I42.9
[2024-02-15] MEDS: APIXABAN 5 MG TABLET PO SCH (17:11)
[2024-02-15] MEDS: METOPROLOL TARTRATE 50 MG TAB PO SCH (20:16)
[2024-02-16 07:58] LABS: Partial Thromboplastin Ratio 1.1; Partial Thromboplastin Time 29 Seconds (21-31)
--- NOTE | 2024-02-16 08:09 | Hospitalist Progress Note ---
Date of Service February 16, 2024 Assessment & Plan (1) Atrial fibrillation with RVR: Plan: - New onset Afib with RVR - Initially on Diltiazem drip, now transitioned to PO 240mg daily - Heparin discontinued; transitioned to Eliquis - Continue Metoprolol PO - Cardiology following - may benefit from cardioversion, currently plan is for rate control - HR improving - continue to monitor on telemetry (2) Acute HFrEF (heart failure with reduced ejection fraction): Plan: - improving ?? - Echo 02/13/24 showed EF 30-35% - CTA on admission showed b/l pleural effusions and mild pulmonary edema - Will continue IV Lasix 40mg daily - Monitor I/O's - daily weights (3) Cardiomyopathy: Plan: - cardiomyopathy secondary to A fib vs. A fib secondary to cardiomyopathy - possibly contributing to dyspnea - cardiology following - evaluating reversible causes of cardiomyopathy - repeat echo in several weeks - possible stress test outpt (4) Bilateral pleural effusion: Plan: - likely secondary to CHF - Continue diuresis with Lasix IV Plan VTE ppx: heparin Diet: heart healthy Code status: FULL CODE Chronic stable diagnoses: YUE - continue CPAP Gout - continue Allopurinol GERD - continue Protonix Admission and Anticipated Discharge Date Admission Date: February 13, 2024 Review of Systems Review of Systems: See HPI Results & Data Results & Data Vital Signs (Past 12 Hours) Vital Signs Temp Pulse Pulse Resp BP Pulse Ox O2 Del Method 02/16/24 07:19 36.6 C 93 H 17 116/83 98 Room Air 02/16/24 03:20 36.9 C 89 18 118/84 96 Room Air 02/15/24 22:41 36.4 C L 88 18 108/78 96 Room Air 02/15/24 21:49 84 PG Care Time/CCT Total # of Minutes Spent Total Time Spent with Patient: Total time spent is greater than 50% in coordination of care (as documented) at patient's floor/unit and/or counseling patient: Coding Diagnoses Atrial fibrillation with RVR I48.91 Acute HFrEF (heart failure with reduced ejection fraction) I50.21 Cardiomyopathy I42.9 Bilateral pleural effusion J90
[2024-02-16] MEDS: APIXABAN 5 MG TABLET PO SCH (09:30)
--- NOTE | 2024-02-16 09:58 | Cardiology Progress Note ---
Date of Service February 16, 2024 Assessment & Plan (1) Atrial fibrillation with RVR: (2) Bilateral pleural effusion: (3) Cardiomyopathy: Plan 1. Atrial fibrillation: He has developed atrial fibrillation with a rapid heart rate, it has not responded well to low-dose AV keyur blockers, but his rate is coming under control now and I think it is acceptable. His average heart rate is under 100. I we need to continue anticoagulation for now although his [id number] score is low so he may not need that for the long run even if he has recurrent atrial fibrillation. He is now on Eliquis and tolerating it well. 2. Pleural effusions: This suggests some element of congestive heart failure, an echo is pending to determine his left ventricular function. This would be consistent with either HFpEF or HFrEF, he does have a low ejection fraction which would favor HFrEF. In either case rate control and mild diuresis would be in order. 3. Cardiomyopathy: He has a significant cardiomyopathy which may partially explain his presenting symptoms of shortness of breath. We cannot be certain whether his cardiomyopathy is secondary to longstanding atrial fibrillation (which may have only recently become symptomatic due to the development of the cardiomyopathy) or whether his cardiomyopathy led to the atrial fibrillation. Usually we cannot make that distinction except in retrospect if we see that his left ventricular function improves with rate control. I would recommend rate control with a repeat echo in several weeks. So far his studies for reversible causes of cardiomyopathy have come back negative, which is not surprising. We will probably need some type of ischemic evaluation although ischemia seems unlikely, I would prefer not to perform catheterization now and I do not think we should do a stress test at this point. We may want to do that in the future but I can arrange that as an outpatient. I will arrange a follow-up visit in our heart failure area in 1 to 2 weeks, get an echo in 2 weeks to assess LV function with an office visit in about 3 weeks to determine whether we need cardioversion. Admission and Anticipated Discharge Date Admission Date: February 13, 2024 Subjective He is feeling quite well today, he has been ambulating in the room in the hallway and does not feel short of breath or have difficulty with ambulation. He remains unaware of his cardiac rhythm. Physical Exam Physical Exam: Constitutional: Alert, cooperative and in no distress. HEENT: Unremarkable Neck: No jugular venous distention, carotid pulses are irregular but otherwise normal and equal bilaterally without bruits. Pulmonary: Clear to auscultation bilaterally. Cardiac: Irregular rhythm with no murmur, gallop or rub. Abdomen: Soft, nontender with normal bowel sounds. Extremities: No edema. Neurologic: No focal findings. Skin: No rash, ecchymoses or petechiae. Results & Data Vital Signs (Past 12 Hours) Vital Signs Temp Pulse Pulse Resp BP Pulse Ox O2 Del Method 02/16/24 07:19 36.6 C 93 H 17 116/83 98 Room Air 02/16/24 05:40 97 H 02/16/24 03:20 36.9 C 89 18 118/84 96 Room Air 02/15/24 22:41 36.4 C L 88 18 108/78 96 Room Air Laboratory Results Coagulation 02/16/24 Range/Units 06:59 APTT 29 (21-31) Seconds Intake and Output 02/15/24 02/16/24 02/16/24 22:59 06:59 14:59 Intake Total 688.266 / 1808.266 400 / 1808.266 Balance 688.266 / 1807.266 400 / 1807.266 Intake: IV 328.266 / 328.266 Heparin Sodium/Dextrose 25,000 328.266 / 328.266 units In 500 ml @ 1,600 UNITS/ HR 32 mls/hr IV .[id number] [facility] Rx #:[id number] Oral 360 / 1480 400 / 1480 Other: Weight 103.2 kg Weight Measurement Method Built in [facility] Diagnostic Findings Telemetry: Atrial fibrillation, heart rate is reasonably well-controlled with an average of about 90 bpm overnight and this morning, despite mild activity. PG Care Time/CCT Total # of Minutes Spent Total Time Spent with Patient: Total time spent is greater than 50% in coordination of care (as documented) at patient's floor/unit and/or counseling patient: Coding Level of Care Code 00678 SUB INP/OBS CARE 3/50MIN Diagnoses Atrial fibrillation with RVR I48.91 Bilateral pleural effusion J90 Cardiomyopathy I42.9
--- NOTE | 2024-02-16 10:03 | Discharge Summary ---
Discharge Summary Date of Service February 16, 2024 Principal Dx & Hospital Course #1 = Principal Diagnosis (1) Atrial fibrillation with RVR: - New onset Afib with RVR - Initially on Diltiazem drip, transitioned to PO 240mg daily, with continuing tachycardia transitioned to 360 mg on discharge - Heparin discontinued; transitioned to Eliquis - Continue Metoprolol PO - Cardiology following - may benefit from cardioversion in future, currently plan is for rate control - HR improved throughout hospital stay (2) Acute HFrEF (heart failure with reduced ejection fraction): - presented with dyspnea on admission; since resolved - Echo 02/13/24 showed EF 30-35% - CTA on admission showed b/l pleural effusions and mild pulmonary edema - Was on IV Lasix 40mg daily; to be transitioned to PO upon discharge - Monitored I/O's and daily weights throughout hospital stay (3) Cardiomyopathy: - cardiomyopathy secondary to A fib vs. A fib secondary to cardiomyopathy - possibly contributed to dyspnea - cardiology consulted - evaluating reversible causes of cardiomyopathy - repeat echo in several weeks - possible stress test outpt (4) Bilateral pleural effusion: - resolved - likely secondary to CHF - diuresis with Lasix IV during hospital stay; will transition to PO Lasix Plan Chronic stable diagnoses: YUE - continue CPAP Gout - continue Allopurinol GERD - continue Protonix Discharge home 02/16/24 with cardiology follow up outpt and CHF clinic appointment. Cardiology to arrange a follow-up visit in heart failure area in 1 to 2 weeks, get an echo in 2 weeks to assess LV function with an office visit in about 3 weeks to determine whether he needs cardioversion. Continue to hold lisinopril as cardiology will reassess out patient. Notes For Next Care Provider Medication Changes From Visit Eliquis 5 mg PO BID Metoprolol 150 mg PO BID Diltiazem 360 mg QAM Lasix 40 mg PO QAM Continue to hold lisinopril until seen by cardiology out patient. Admission HPI Per Admitting Provider The patient is a 53-year-old male with a past medical history including hypertension, diverticulitis, gout, hidradenitis suppurativa, prediabetes, YUE on CPAP, hypertension, obesity, and dyslipidemia. He presents to the emergency department with complaint of progressive shortness of breath, dyspnea on exertion over the past few days, and reports an increased heart rate over the past 2 weeks. He reports that he had missed his most recent outpatient appointment, but did have it his medications renewed until his next appointment could be made. He denies any recent travels or sick exposures. He denies any change in his usual dietary intake. Admission Exam Per Admitting Provider The patient is awake, alert and oriented 3, well developed and well nourished, normocephalic and atraumatic, lying in bed and in no acute distress. HEENT--PERRL, EOMI, mucous membranes and oropharynx normal Neck--supple. No JVD. No bruits. Thyroid normal, trachea midline, no adenopathy. Heart--tachycardic and regular. No murmurs, rubs or gallops. Lungs--decreased breath sounds at the bases bilaterally. No respiratory distress, no accessory muscle use. Abdomen--normal bowel sounds and soft. Nontender. Nondistended, no hernias or masses, no organomegaly. Extremities--no cyanosis or clubbing. No edema. There are good distal pulses b/l. Dermatologic--normal skin turgor, normal color, no abnormal lymph nodes, no rash. Neurologic--cranial nerves II through XII grossly intact. Rheumatologic--normal range of motion. Psychiatric--normal affect. Discharge Exam The patient is awake, alert and oriented 3, well developed and well nourished, normocephalic and atraumatic, in no acute distress. Non-toxic appearing. HEENT- EOMI, mucous membranes moist. Hearing grossly intact. Heart- Irregularly irregular rhythm. normal S1 and S2. No murmurs, rubs or gallops. Lungs- clear bilaterally, no respiratory distress, no accessory muscle use. Abdomen- normal bowel sounds and soft. No ascites noted. Non-tender. Extremities- no clubbing, cyanosis, or edema. Rheumatologic- normal range of motion. Psychiatric- normal affect. Discharge Plan Discharge Items Patient Disposition: Home - Self-Care Reason For Visit: NEW ONSET A-FIB WITH RVR, PL EFFUSIONS Discharge Diagnosis: 1. Atrial Fibrillation 2. Congestive Heart failure with reduced ejection fraction 3. cardiomyopathy Condition on Discharge: Good Activity: Resume your previous activity Non-emergency contact: Primary Care Provider and Starch [employer]er Call non-emergency contact if: you have any medication questions and your symptoms worsen Follow-up/Referrals: Tristan Navarro MD [Physician] - (Dre from Dr. Navarro's office will be calling you with an appointment. He is messaging Dr. Navarro for a time. ) Linda Ward MD [Primary Care Provider] - 02/21/24 10:20 am Sultana Mendez PA-C [Physician News Correspondent] - 02/22/24 10:30 am Diet: Regular Addtl Attending Provider Instructions: You were found to have an irregular heart rhythm known as atrial fibrillation. Your echocardiogram (the ultrasound of your heart) show that you also have congestive heart failure with a reduced ejection fraction. Cardiology believes that you have cardiomyopathy, this could be due to your A. Fib. or the cause of it. You are being sent home on the following medications: Eliquis 5 mg PO BID Metoprolol 150 mg PO BID Diltiazem 240 mg QAM Lasix 40 mg PO QAM You are to follow up with heart failure area in 1 to 2 weeks. You will get an echo in 2 weeks to assess LV function with an office visit in about 3 weeks to determine whether we need cardioversion with cardiology. Continue to hold lisinopril until seen by cardiology out patient. Pending Studies at Discharge: Yes Studies:: Alpha 1/2 globulins, beta 1/2 globulins, monoclonal proteins, DALILA enzymes Stand-Alone Forms: [facility] Medications and DC Order Prescriptions: New Eliquis 5 mg Tablet 5 mg PO BID Qty: 30 0RF diltiazem HCl 180 mg Capsule,Extended Release 24hr 360 mg PO QAM Qty: 30 0RF aspirin 81 mg Tablet,Delayed Release (Dr/Ec) 81 mg PO QAM Qty: 30 0RF metoprolol tartrate 50 mg Tablet 150 mg PO BID Qty: 60 0RF furosemide [Lasix] 40 mg tablet 40 mg PO DAILY Qty: 30 0RF Continued pantoprazole 40 mg tablet,delayed release (DR/EC) 40 mg PO QAM Qty: 90 1RF allopurinol 100 mg tablet 100 mg PO QAM Qty: 90 1RF cholecalciferol (vitamin D3) [Vitamin D3] 125 mcg (5,000 unit) Tablet 125 mcg PO QAM Held lisinopril 40 mg tablet 40 mg PO QAM Qty: 90 1RF Hold Instructions: Resume on 03/12/24. Until seen by cardiology out patient Discontinued aspirin 81 mg tablet 81 mg PO .TAKE 1 TABLET DAILY. Patient Comments: QAM Discharge Orders: Discharge Order- CHF (Routine); Ordered 02/16/24 Ordered By: Svetlana Hull/Other Patient Handouts: AFib Dc, Cardiomyopathy Dc, Heart Failure Dc Admission Data Admit Date/Time: 02/13/24 01:02 Attending Provider: Tre Suarez Admit Provider: Ritchie Naranjo Primary Care Provider: Linda Ward Other Providers: Tristan Navarro; Ritchie Naranjo Other Interventions: Discharge Summary Assessment (RN) Last Done: 02/16/24 15:01 Hospital Stay Data Consultations 02/12/24 23:09 ED Decision to Admit Stat 02/13/24 01:21 Consult Cardiology Routine Diagnostic Imagining Performed Chest X-Ray 02/12/24 20:57 XR chest 1V portable CLINICAL HISTORY: tachycardia TECHNIQUE: Single frontal radiograph of the chest was obtained. Comparison: Comparison is made to chest radiograph 01/23/2012 FINDINGS: No lines and tubes are seen. Cardiomegaly is noted. The lungs are clear. No evidence of pleural effusion or pneumothorax. IMPRESSION: No acute chest disease. Cardiomegaly is noted. ACT 112: Negative or not required by law. Electronically signed by: Fermín Dunn M.D. 02/13/2024 8:19 AM Abdomen/Pelvis CT 02/12/24 22:09 Exam(s): CT ABDOMEN + PELVIS With Contrast IV Amt: 118 ML OPTIRAY 320 EXAM: CT Abdomen and Pelvis With Intravenous Contrast CLINICAL HISTORY: Reason for exam: abd pain, constip. TECHNIQUE: Axial computed tomography images of the abdomen and pelvis with intravenous contrast. CTDI is 28.05 mGy and DLP is 2471.19 mGy-cm. Automated exposure control was utilized for the study. A dose lowering technique was utilized adhering to the principles of ALARA. CONTRAST: Patient received 118 ML OPTIRAY 320 of IV contrast COMPARISON: 07/02/14 FINDINGS: Lung bases: See below. Pleural space: Small bibasilar pleural effusions with mild compressive atelectasis dependent lung bases. Pneumonia not definitively excluded. ABDOMEN: Liver: Fatty infiltration of liver. Gallbladder and bile ducts: Unremarkable. No calcified stones. No ductal dilation. Pancreas: Unremarkable. No mass. No ductal dilation. Spleen: Unremarkable. No splenomegaly. Adrenals: Unremarkable. No mass. Kidneys and ureters: Unremarkable. No solid mass. No hydronephrosis. Stomach and bowel: Nondistended, fluid-filled small and large bowel characteristic for watery diarrhea. Subtle inflammatory stranding surrounding the descending duodenum may represent infectious or inflammatory duodenitis. PELVIS: Appendix: No findings to suggest acute appendicitis. Bladder: Unremarkable. No mass. Reproductive: Unremarkable as visualized. ABDOMEN and PELVIS: Intraperitoneal space: Unremarkable. No free air. No significant fluid collection. Bones/joints: No acute fracture. No dislocation. Soft tissues: Unremarkable. Vasculature: Unremarkable. No abdominal aortic aneurysm. Lymph nodes: Unremarkable. No enlarged lymph nodes. IMPRESSION: 1. Nondistended, fluid-filled small and large bowel characteristic for watery diarrhea. 2. Subtle inflammatory stranding surrounding the descending duodenum may represent infectious or inflammatory duodenitis. 3. Small bibasilar pleural effusions with mild compressive atelectasis dependent lung bases. Pneumonia not definitively excluded. Electronically signed by: Calixto Lux MD 02/12/24 23:01 PM Chest CTA 02/12/24 22:09 Exam(s): CTA CHEST IV Amt: 118 ML OPTIRAY 320 EXAM: CT Angiography Chest With Intravenous Contrast CLINICAL HISTORY: Reason for exam: PE. TECHNIQUE: Axial computed tomographic angiography images of the chest with intravenous contrast. CTDI is 28.05 mGy and DLP is 2471.19 mGy-cm. Automated exposure control was utilized for the study. A dose lowering technique was utilized adhering to the principles of ALARA. MIP reconstructed images were created and reviewed. COMPARISON: 07/02/14 FINDINGS: Pulmonary arteries: Unremarkable. No pulmonary embolism is identified. Aorta: No acute findings. No thoracic aortic aneurysm. Lungs: Mild interstitial pulmonary edema and mild congestive bronchial wall thickening. Pleural space: Small, layering bilateral pleural effusions with mild compressive atelectasis or pneumonia in the dependent lung bases. Heart: Heart is mildly enlarged. No significant pericardial effusion. No evidence of RV dysfunction. Bones/joints: No acute fracture. No dislocation. Soft tissues: Unremarkable. Lymph nodes: Unremarkable. No enlarged lymph nodes. IMPRESSION: 1. No pulmonary embolism is identified. 2. Small, layering bilateral pleural effusions with mild compressive atelectasis or pneumonia in the dependent lung bases. 3. Mild interstitial pulmonary edema and mild congestive bronchial wall thickening. Electronically signed by: Calixto Lux MD 02/12/24 23:03 PM Pending Results Patient Have Any Pending Studies at Discharge: Yes Discharge Instructions Given to Patient (Per Discharging Provider) You were found to have an irregular heart rhythm known as atrial fibrillation. Your echocardiogram (the ultrasound of your heart) show that you also have congestive heart failure with a reduced ejection fraction. Cardiology believes that you have cardiomyopathy, this could be due to your A. Fib. or the cause of it. You are being sent home on the following medications: Eliquis 5 mg PO BID Metoprolol 150 mg PO BID Diltiazem 240 mg QAM Lasix 40 mg PO QAM You are to follow up with heart failure area in 1 to 2 weeks. You will get an echo in 2 weeks to assess LV function with an office visit in about 3 weeks to determine whether we need cardioversion with cardiology. Continue to hold lisinopril until seen by cardiology out patient. Supervising Physician Co-Signing Physician Notes Patient was seen and examined independently I discussed the case with Svetlana PATEL I reviewed pertinent past medical social family history and also the plan of care and agree with the plan of care. Patient here with difficult to control atrial fibrillation and rate related cardiomyopathy likely with heart failure reduced ejection fraction Patient feels much better with rate controlling however still is having high rates with walking. Subsequently will increase his Cardizem prior to discharge he will follow-up with cardiology in short order as an outpatient. Paperwork was filled out for FMLA Card exam is awake alert appropriate he is in no distress his heart rate is irregular but rate controlled lungs are clear extremities are without edema It required greater than 30 minutes to prepare this patient for discharge. Patient discharged home in escalating doses of Cardizem and metoprolol for close outpatient follow-up for possibility of cardioversion and/or stress testing. Anticoagulation with apixaban Any exceptions will be noted below Total Time Total Time Spent Total Time Spent (In Minutes): 45 Coding Level of Care Code None Diagnoses Atrial fibrillation with RVR I48.91 Acute HFrEF (heart failure with reduced ejection fraction) I50.21 Cardiomyopathy I42.9 Bilateral pleural effusion J90
[2024-02-16 10:35] VITALS: RESP 20; TEMP 98.4; O2SAT 95
[2024-02-16] MEDS: dilTIAZem HCl 60 MG TAB PO ONE (13:37)
[2024-02-16 15:02] VITALS: BP 125/94
[2024-02-16 15:36] VITALS: PULSE 84
--- NOTE | 2024-02-16 18:09 | Billing Data ---
Date of Service February 16, 2024 Coding Level of Care Code 77802 INP/OBS DISCH >30 MIN
[2024-02-17 08:02] LABS: Albumin 3.5 g/dL (3.8-4.8); Alpha 1 Globulin 0.3 g/dL (0.2-0.3); Alpha 2 Globulin 0.9 g/dL (0.5-0.9); Angiotensin Converting Enzyme 30 U/L (9-67); Beta-1-Globulin 0.5 g/dL (0.4-0.6); Beta-2-Globulin 0.5 g/dL (0.2-0.5); Gamma Globulin 0.8 g/dL (0.8-1.7); Monoclonal Protein Band 1 DNR g/dL (NONE DETECTED); Monoclonal Protein Band 2 DNR g/dL (NONE DETECTED); Monoclonal Protein Band 3 DNR g/dL (NONE DETECTED); Total Protein 6.4 g/dL (6.1-8.1)
[2024-02-17] MEDS ORDERED: dilTIAZem HCL 180 MG CAPCR PO SCH (09:00)
== END 2024-02-16 15:38 | disposition home or self-care (01) | DRG 308 ==
LOC: ED 20:18 → SUATTDRO 02-13 01:02 → EDINP 02-13 01:02 → 2S 02-13 18:21
DX: I50.21 Acute systolic (congestive) heart failure; G47.33 Obstructive sleep apnea (adult) (pediatric); Z11.52 Encounter for screening for COVID-19; I48.92 Unspecified atrial flutter; E66.9 Obesity, unspecified; I11.0 Hypertensive heart disease with heart failure; M10.9 Gout, unspecified; I42.9 Cardiomyopathy, unspecified; Z68.33 Body mass index [BMI] 33.0-33.9, adult; K21.9 Gastro-esophageal reflux disease without esophagitis; Z79.899 Other long term (current) drug therapy; I48.91 Unspecified atrial fibrillation; Z79.82 Long term (current) use of aspirin